=== PATIENT | male | born 1975 | race Hispanic/Latino ===

== ENCOUNTER 2017-06-29 22:27 | Emergency (ER) | payer OTHER ==
[2017-06-29 22:58] VITALS: TEMP 98.5; O2SAT 99
--- NOTE | 2017-06-29 23:39 | ED PDOC ---
HPI: General Adult Time Seen by Provider: 06/29/17 23:29 Chief Complaint (Nursing): Upper Extremity Problem/Injury Chief Complaint (Provider): Neck pain - 1 week, getting worse History Per: Patient History/Exam Limitations: no limitations Onset/Duration Of Symptoms: Days Have you had recent travel within the past 21 days to any of the following countries: [place], [place], [place] or [place]?: No Current Symptoms Are (Timing): Still Present Additional Complaint(s): Pt reports posterior neck pain for 1 week. PT states it was mild but became worse the last 2 days. PT denies trauma. Posterior pain without radiation. PT was seen by urgent care this morning and they gave her naproxen and flexeril. PT states he took 2 doses but it did not help. Pain worse with side rotation. PT denies fever/chills. Past Medical History Reviewed: Historical Data, Nursing Documentation, Vital Signs Vital Signs: Last Vital Signs Temp 98.5 F 06/29/17 22:54 Pulse 76 06/29/17 22:54 Resp 18 06/29/17 22:54 BP 134/82 06/29/17 22:54 Pulse Ox 99 06/29/17 22:54 - Medical History PMH: No Chronic Diseases - Surgical History Surgical History: No Surg Hx - Family History Family History: States: No Known Family Hx - Living Arrangements Living Arrangements: With Family - Social History Current smoker - smoking cessation education provided: No Alcohol: None - Allergies Allergies/Adverse Reactions: Allergies Allergy/AdvReac Type Severity Reaction Status Date / Time No Known Allergies Allergy Verified 06/29/17 23:34 Review of Systems ROS Statement: Except As Marked, All Systems Reviewed And Found Negative Constitutional: Negative for: Fever, Chills, Malaise Musculoskeletal: Positive for: Neck Pain Physical Exam - Reviewed Nursing Documentation Reviewed: Yes Vital Signs Reviewed: Yes - Physical Exam Appears: Positive for: Well, Non-toxic, No Acute Distress Head Exam: Positive for: ATRAUMATIC, NORMAL INSPECTION, NORMOCEPHALIC Skin: Positive for: Normal Color, Warm, DRY Eye Exam: Positive for: Normal appearance ENT: Positive for: Normal ENT Inspection Neck: Positive for: Normal. Negative for: Painless ROM (Unable to move side to side ) Cardiovascular/Chest: Positive for: Regular Rate, Rhythm Respiratory: Positive for: Normal Breath Sounds. Negative for: Accessory Muscle Use, Respiratory Distress Gastrointestinal/Abdominal: Positive for: Normal Exam, Soft Back: Positive for: Normal Inspection Extremity: Positive for: Normal ROM Neurologic/Psych: Positive for: Alert, Oriented - ECG O2 Sat by Pulse Oximetry: 99 Pulse Ox Interpretation: Normal Medical Decision Making Medical Decision Making: Endorsed pending C-spine. Disposition - Clinical Impression Clinical Impression: Neck pain - Patient ED Disposition Is Patient to be Admitted: Transfer of Care - Disposition Disposition: Routine/Home Disposition Time: 00:00 Condition: STABLE
[2017-06-30 01:14] VITALS: BP 122/82; PULSE 68; RESP 16
--- NOTE | 2017-06-30 01:26 | ED PDOC ---
- ECG O2 Sat by Pulse Oximetry: 99 - Other Rad cspine xray X-Ray: Viewed By Me X-Ray Interpretation: no acute findings - Progress ED Course And Treament: case endorsed to senior medical writer from [facility] pending xray, re-eval Patient reports little improvement after PO valium given. IV toradol, IV morphine ordered On re-eval, patient states he is feeling better. Patient educated on findings, discharged with rx Valium. Advised to continue NAproxen. Warm compresses Follow up PMD 2-3 days. return precautions given. Disposition - Clinical Impression Clinical Impression: Neck pain - POA Present On Arrival: None - Disposition Disposition: Routine/Home Disposition Time: 02:13 Condition: IMPROVED Prescriptions: diaZEpam [Valium] 5 mg PO TID PRN #10 tab PRN Reason: Muscle Spasm Instructions: Cervical Muscle Strain Forms: [facility] (Taiwanese)
--- NOTE | 2017-06-30 09:55 | RAD ---
PROCEDURE: Cervical Spine Radiographs. HISTORY: Pain. COMPARISON: None. FINDINGS: BONES: Alignment maintained. No fracture. Dens Intact. DISC SPACES: Normal. SOFT TISSUES: Normal. No prevertebral soft tissue swelling. OTHER FINDINGS: None. IMPRESSION: Normal cervical spine radiographs
== END 2017-06-30 02:23 | disposition home or self-care (01) ==
LOC: H.ER 22:27
DX: M54.2 Cervicalgia (principal)
CPT/HCPCS: 72040; 96374; 96375; 99283; J1885; J2270

== ENCOUNTER 2017-10-18 14:32 | Emergency (ER) | payer OTHER ==
[2017-10-18 14:52] VITALS: TEMP 98; O2SAT 98
--- NOTE | 2017-10-18 15:33 | ED PDOC ---
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 Today reports numbness and tingling to L arm/hand/fingers. Denies fever, cough , SOB, nausea, vomiting, focal weakness, JONES. Past Medical History Reviewed: Nursing Documentation, Vital Signs Vital Signs: Last Vital Signs Temp 98 F 10/18/17 14:50 Pulse 58 L 10/18/17 19:37 Resp 17 10/18/17 19:37 BP 135/88 10/18/17 19:37 Pulse Ox 98 10/19/17 14:42 - Medical History PMH: Malignancy (Skin) - Family History Family History: States: Unknown Family Hx Denies: CT Other Family History: No h/o early CT - Social History Current smoker - smoking cessation education provided: No Alcohol: None Drugs: Denies - Home Medications Home Medications: Ambulatory Orders Medication Instructions Recorded diaZEpam [Valium] 5 mg PO TID PRN #10 tab 06/30/17 - Allergies Allergies/Adverse Reactions: Allergies Allergy/AdvReac Type Severity Reaction Status Date / Time No Known Allergies Allergy Verified 10/18/17 14:49 MAURISIO Risk Score for UA/NSTEMI - MAURISIO Risk Score Age > 64: NO 3 or more CAD Risk Factors: NO Known CAD (Stenosis greater than 50%): NO Aspirin use in past 7 days: NO Severe Angina: NO EKG ST changes greater than 0.5mm: NO Positive Cardiac Marker: NO MAURISIO Score: 0 Risk %: 5% Wells Criteria for PE - Wells Criteria for Pulmonary Embolism Clinical Signs and Symptoms of DVT: No P.E is #1 Diagnosis, or Equally Likely: No Heart Rate >100: No Immobilization at least 3 days;Surgery previous 4 weeks: No Previous, objectively diagnosed PE or DVT: No Hemoptysis: No Malignancy w/treatment within 6 months, or palliative: No Total Score: 0 Review of Systems Constitutional: Negative for: Fever, Chills Cardiovascular: Positive for: Chest Pain. Negative for: Palpitations Respiratory: Negative for: Cough, Shortness of Breath Gastrointestinal: Negative for: Nausea, Vomiting, Abdominal Pain, Diarrhea Genitourinary Male: Negative for: Dysuria, Hematuria Musculoskeletal: Positive for: Shoulder Pain (L), Arm Pain (L) Skin: Negative for: Rash, Lesions Neurological: Positive for: Numbness. Negative for: Headache, Dizziness Physical Exam - Reviewed Nursing Documentation Reviewed: Yes Vital Signs Reviewed: Yes - Physical Exam Appears: Positive for: Well, No Acute Distress Head Exam: Positive for: ATRAUMATIC, NORMAL INSPECTION Skin: Positive for: Normal Color, Warm, Dry Eye Exam: Positive for: Normal appearance, EOMI, PERRL Cardiovascular/Chest: Positive for: Regular Rate, Rhythm Respiratory: Positive for: Normal Breath Sounds. Negative for: Rales, Rhonchi, Wheezing Gastrointestinal/Abdominal: Positive for: Normal Exam Back: Positive for: Normal Inspection. Negative for: L CVA Tenderness, R CVA Tenderness Extremity: Positive for: Normal ROM. 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 Negative for: Motor/Sensory Deficits, Aphasia, Facial Droop - Laboratory Results Result Diagrams: 10/18/17 15:40 10/18/17 15:40 - ECG Interpretation Of ECG: Sinus shawn @ 54, LAD, no ST-T changes. O2 Sat by Pulse Oximetry: 98 Pulse Ox Interpretation: Normal Medical Decision Making Medical Decision Makin yo male with chest tightness. - labs - EKG - CXR - CT C-spine Accession No. : [id number] Patient Name / ID : KATHARINA STATON / [id number] Exam Date : 10/18/2017 15:28:35 ( Approved ) Study Comment : Sex / Age : M / 42Y Creator : aurelio harrell Dictator : Eric Dover MD Computer Architect : Paper Products Inspector : Eric Dover MD Approver2 : Report Date : 10/18/2017 15:55:52 My Comment : Date of service: 10/18/2017 HISTORY: CP COMPARISON: No prior. TECHNIQUE: Chest PA and lateral FINDINGS: LUNGS: No active pulmonary disease. PLEURA: No significant pleural effusion identified. No pneumothorax apparent. CARDIOVASCULAR: Normal. OSSEOUS STRUCTURES: No significant abnormalities. VISUALIZED UPPER ABDOMEN: Normal. OTHER FINDINGS: None. IMPRESSION: No active disease. Accession No. : [id number] Patient Name / ID : KATHARINA STATON / [id number] Exam Date : 10/18/2017 15:45:25 ( Approved ) Study Comment : Sex / Age : M / 42Y Creator : Eric Dover MD Dictator : Eric Dover MD Computer Architect : Paper Products Inspector : Eric Dover MD Approver2 : Report Date : 10/18/2017 16:21:41 My Comment : Date of service: 10/18/2017 PROCEDURE: CT Cervical Spine without contrast HISTORY: Left arm tingling. Pain. No history of recent/ related trauma provided COMPARISON: None available. TECHNIQUE: Axial computed tomography images were obtained of the cervical spine without the use of intravenous contrast. Coronal and sagittal reformatted images were created and reviewed. Radiation dose: Total exam DLP = 267.02 mGy-cm. This CT exam was performed using one or more of the following dose reduction techniques: Automated exposure control, adjustment of the mA and/or kV according to patient size, and/or use of iterative reconstruction technique. FINDINGS: VERTEBRAE: No fracture. Normal alignment. No destructive bony lesion. DISCS/SPINAL CANAL/NEURAL FORAMINA: No significant central canal or neural foraminal stenosis. Discs heights are grossly preserved. Questionable annular bulge to the left of the midline C5-6. PARASPINAL SOFT TISSUES: Unremarkable. OTHER FINDINGS: None. IMPRESSION: No acute findings related to/accounting for the clinical presentation. Questionable annular bulge/ disc to the left of the midline C5-6. This finding would be better evaluated with MRI if clinically appropriate Disposition - Clinical Impression Clinical Impression: Chest pain, Cervical radiculopathy - Disposition Referrals: Inna Gaytan [Outside] (FOLLOW UP WITH [facility] AND [facility] IN 24-48 HOURS FOR REEVALUATION AND TO SCHEDULE FOLLOW UP APPOINTMENT WITH A PRIMARY CARE PHYSICIAN.) Disposition: Transfer of Care Disposition Time: 15:00 Condition: STABLE Instructions: Chest Pain That Is Not Caused by the Heart (DC), Radiculopathy ( DC) Forms: [facility] Re[facility] (Sami), [facility] ED School/Work Excuse Patient Signed Over To: Ana Farris
[2017-10-18 15:57] LABS: BASO # 0.1 K/uL (0.0-0.2); BASO % 1.1 % (0.0-2.0); EOS # 0.1 K/uL (0.0-0.7); EOS % 1.1 % (0.0-4.0); HEMOGLOBIN 12.7 g/dL (12.0-18.0); LYMPH % 30.2 % (20.0-40.0); MEAN CELL VOLUME 63.7 fl (80.0-94.0); MEAN CORPUSCULAR HEMOGLOBIN 20.3 pg (27.0-31.0); MEAN CORPUSCULAR HGB CONC 31.8 g/dL (33.0-37.0); MEAN PLATELET VOLUME 8.8 fl (7.2-11.7); MONO # 0.9 K/uL (0.0-0.8); MONO % 13.7 % (0.0-10.0); NEUT # 3.6 K/uL (1.8-7.0); NEUT % 53.9 % (50.0-75.0); NRBC % 0.1 % (0.0-0.0); RBC 6.26 Mil/uL (4.40-5.90); RED CELL DISTRIBUTION WIDTH 15.5 % (11.5-14.5); WHITE BLOOD COUNT 6.6 K/uL (4.8-10.8)
[2017-10-18 16:10] LABS: PROTHROMBIN TIME 11.6 Seconds (9.8-13.1)
[2017-10-18 16:13] LABS: PARTIAL THROMBOPLASTIN TIME 40.9 Seconds (25.6-37.1)
--- NOTE | 2017-10-18 16:13 | RAD ---
Date of service: 10/18/2017 HISTORY: CP COMPARISON: No prior. TECHNIQUE: Chest PA and lateral FINDINGS: LUNGS: No active pulmonary disease. PLEURA: No significant pleural effusion identified. No pneumothorax apparent. CARDIOVASCULAR: Normal. OSSEOUS STRUCTURES: No significant abnormalities. VISUALIZED UPPER ABDOMEN: Normal. OTHER FINDINGS: None. IMPRESSION: No active disease.
[2017-10-18 16:18] LABS: ALB/GLOB RATIO 1.4 (1.0-2.1); ALBUMIN 4.1 g/dL (3.5-5.0); ALT/SGPT 34 U/L (21-72); AST/SGOT 39 U/L (17-59); BLOOD UREA NITROGEN 27 mg/dl (9-20); CALCIUM 9.2 mg/dL (8.4-10.2); GFR AFRICAN-AMERICAN > 60; GFR NON-AFRICAN AMERICAN > 60
--- NOTE | 2017-10-18 16:23 | CT ---
Date of service: 10/18/2017 PROCEDURE: CT Cervical Spine without contrast HISTORY: Left arm tingling. Pain. No history of recent/ related trauma provided COMPARISON: None available. TECHNIQUE: Axial computed tomography images were obtained of the cervical spine without the use of intravenous contrast. Coronal and sagittal reformatted images were created and reviewed. Radiation dose: Total exam DLP = 267.02 mGy-cm. This CT exam was performed using one or more of the following dose reduction techniques: Automated exposure control, adjustment of the mA and/or kV according to patient size, and/or use of iterative reconstruction technique. FINDINGS: VERTEBRAE: No fracture. Normal alignment. No destructive bony lesion. DISCS/SPINAL CANAL/NEURAL FORAMINA: No significant central canal or neural foraminal stenosis. Discs heights are grossly preserved. Questionable annular bulge to the left of the midline C5-6. PARASPINAL SOFT TISSUES: Unremarkable. OTHER FINDINGS: None. IMPRESSION: No acute findings related to/accounting for the clinical presentation. Questionable annular bulge/ disc to the left of the midline C5-6. This finding would be better evaluated with MRI if clinically appropriate
--- NOTE | 2017-10-18 17:32 | ED PDOC ---
- Laboratory Results Result Diagrams: 10/18/17 15:40 10/18/17 15:40 - ECG O2 Sat by Pulse Oximetry: 98 (RA) Pulse Ox Interpretation: Normal Medical Decision Making Medical Decision Making: Time: 1700 --Patient endorsed to provider by Dr. Mansfield. Patient presents with chest pain and paresthesias of left UE. Initial work up was unremarkable except for CT neck demonstrating herniated disc. Plan to repeat troponin II at 1930 to r/o BCS. 2100 Repeat troponin negative DW pt findings and plan of care. rest, f/u pcp or clinic, ibuprofen prn pain. Scribe Attestation: Documented by Nimo Bauer, acting as a scribe for Ana Farris MD. Provider Scribe Attestation: All medical record entries made by the Scribe were at my direction and personally dictated by me. I have reviewed the chart and agree that the record accurately reflects my personal performance of the history, physical exam, medical decision making, and the department course for this patient. I have also personally directed, reviewed, and agree with the discharge instructions and disposition. Disposition - Clinical Impression Clinical Impression: Chest pain, Cervical radiculopathy - POA Present On Arrival: None - Disposition Referrals: [facility] Varinder Gaytan [Outside] (FOLLOW UP WITH [facility] IN 24-48 HOURS FOR REEVALUATION AND TO SCHEDULE FOLLOW UP APPOINTMENT WITH A PRIMARY CARE PHYSICIAN.) Disposition: Routine/Home Disposition Time: 21:00 Condition: STABLE Instructions: Chest Pain That Is Not Caused by the Heart (DC), Radiculopathy ( DC) Forms: [employer] (Latvian), [facility] ED School/Work Excuse
[2017-10-18 19:38] VITALS: BP 135/88; PULSE 58; RESP 17
--- NOTE | 2017-10-19 07:17 | CARD ---
APPROVED REPORT Date of service: 10/18/2017 <Conclusion> Sinus bradycardia Left axis deviation Abnormal ECG
== END 2017-10-18 21:17 | disposition home or self-care (01) ==
LOC: H.ER 14:32
DX: R07.89 Other chest pain (principal); M54.12 Radiculopathy, cervical region